=== PATIENT | female | born 1965 | race Caucasian/White ===

== ENCOUNTER → 2016-04-23 | Outpatient (CLI) | payer BC ==
--- NOTE | 2016-04-23 16:53 | MRI ---
HISTORY: Low back pain Study: MRI lumbar spine without contrast Comparison: None Technique: Multiplanar multi-sequence MRI of the lumbar spine was obtained. Sagittal T1, sagittal T 2, and stir weighted images, axial T1, and axial T2 images were obtained. Findings: The lumbar spine demonstrates normal alignment. No abnormal cord or marrow signal identified. The c onus of the cord terminates normally. The surrounding soft tissues are within normal limits. Verteb ral body heights are preserved. There is mild multilevel spondylosis and disc desiccation throughout the lumbar spine. T12 -- L1: No significant stenosis identified. L1 -- L2: No significant stenosis identified. Moderate bilateral facet degenerative changes. L2 -- L3: There is a mild to moderate broad-based disc bulge and bilateral facet degenerative change s resulting in mild bilateral foraminal narrowing. L3 -- L4: There is a moderate-sized broad-based disc bulge and facet hypertrophic changes causing mi ld bilateral foraminal narrowing. L4 -- L5: Mild circumferential disc bulge and moderate facet degenerative changes without significan t stenosis. L5 -- S1: There is a small central annular tear and disc protrusion without significant mass effect. Moderate to severe bilateral facet degenerative changes are present. IMPRESSION: 1. Broad-based disc bulges and facet degenerative changes at L2-L3 and L3-L4 resulting in mild bilat eral foraminal narrowing. 2. Small central annular tear and disc protrusion at L5-S1 without significant mass effect. Reported By:
== END ==
LOC: RAD 14:47
PROVIDERS: ATTEND Family Medicine
DX: S39.012A Strain of muscle, fascia and tendon of lower back, initial encounter (principal); X58.XXXA Exposure to other specified factors, initial encounter
CPT/HCPCS: 72148